=== PATIENT | male | born 1950 | race Caucasian/White ===

== ENCOUNTER 2016-05-03 11:17 | Inpatient (IN) | payer MEDICARE ==
[~2016-05-03] VITALS: Ht 172.7 cm; Wt 77.6 kg
[~2016-05-03 11:17] MED LIST: ADULT LOW DOSE81 MG PO; ANTIBIOTIC PO; AZILECT1 MG PO; BETIMOL 5 ML5 M1 OP; CARBIDOPA/LE1 TABLE2 PO; CEFTRIAXONE 1 GM1 GM IV; CLOPIDOGREL75 M2 PO; CRESTOR5 MG PO; ISOSORBIDE MONO30 MG PO; KEFLEX 500MG.500 MG PO; LEVAQUIN500 MG PO; LEVOFLOXACIN 5500 MG PO; MEDROL 4MG. DOSE4 MG PO; METFORMIN1000 MG PO; METOPROLOL TAR100 MG PO; MIRALAX17 GM/PACK PO; NIASPAN500 MG PO; NITROLINGU0.4 MG/ACT SL; OMEPRAZOLE PO; OXYBUTYNIN CHLOR5 MG PO; OXYCODONE AND A1 TA5 PO; OXYCODONE HCL10 M1 PO; PERCOCET 10 MG1 EACH PO; PERCOCET 5/3251 EACH PO; PRAVASTATIN SOD80 MG PO; PRIMIDONE 50 MG50 MG PO; TAMSULOSIN HCL0.4 MG PO; TAMSULOSIN HYD0.4 MG PO; VITAMIN B121000 MC2 PO; [UNRECOGNIZED DRUG - OTHER] PO; [UNRECOGNIZED DRUG - REMARK] PO
[2016-05-03 11:18] VITALS: BP 141/73
[2016-05-03 11:36] LABS: LYMPH # 1.1 K/mm3 (0.7-4.5); LYMPH % 13.9 % (10-50)
[2016-05-03 11:43] LABS: HEMOGLOBIN 13.5 g/dL (14.1-18.0)
[2016-05-03 12:06] LABS: URINE BLOOD 2+ (NEG)
[2016-05-03 12:07] LABS: URINE BILIRUBIN - DIPSTICK NEGATIVE (NEG)
[2016-05-03 12:23] LABS: BUN 16 mg/dL (7-18)
[2016-05-03 12:25] LABS: GFR (ESTIMATED) 84 ML/MIN (>60)
--- NOTE | 2016-05-03 12:59 | Emergency Room Report ---
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 N Clinical Suspician of Infection? N Mental Status: 1 - Regular (Normal Baseline) Sepsis Risk:Low Sepsis Risk Have you (or family members/close friends) recently traveled outside the [place]? N If Yes, where/when: Have you had exposure to infectious disease within the past month? N TB? Other? Specify: Source patient, RN notes reviewed, family, RN/MD Exam Limitations no limitations Comment 65yo white male presents today with a decline in his mental status and weakness x1 week according to family. He was seen a week ago due to fall and head injury, but was stable and discharged. Pt has chronic medical conditions with cardiac, diabetes, and ambulation, along with chronic f/c use. Family also reports pt having "parkinson's," and started having more tremors after fall. Pt denies fever, chills, n/v/d, CP, palpitations, SOA, wheezing. He does report more fatigue and weakness. ALLERGIES Coded Allergies: No Known Allergies (04/15/16) Home Medications Active Scripts Polyethylene Glycol 3350 (Miralax) 17 GM PO DAILY #1 BOTTLE Ref 1 Prov: 10/18/15 Reported Medications OXYCODONE HCL/ACETAMINOPHEN (Oxycodone-Acetaminophen 10-325) 1 TAB PO Q4HP PRN PAIN #150 Timolol (Betimol 5 Ml) 1 DROP OP BID RASAGILINE MESYLATE (Azilect) 1 MG PO DAILY #30 Aspirin (Adult Low Dose Aspirin EC) 81 MG PO DAILY Rosuvastatin Calcium (Crestor) 5 MG PO QHS RANITIDINE HCL (Ranitidine HCl) 150 MG PO BID #60 TAB Primidone 50 MG PO QHS Nitroglycerin (Nitrolingual [place]) 0.4 MG SL PRN Metoprolol Tartrate (Metoprolol 100MG) 100 MG PO BID CARBIDOPA 25/LEVODOPA 100 (Carbidopa-Levodopa 25-100 Tab) 2 TABLET PO TID Isosorbide Mononitrate (Isosorbide Mononitrate ER) 30 MG PO DAILY #90 CLOPIDOGREL BISULFATE (Clopidogrel) 75 MG PO DAILY #90 TAMSULOSIN HCL (Tamsulosin HCl) 0.4 MG PO BID #180 History Medical History General CAD? No Angina: Yes [place]: Yes Hypertension? Yes Hyperlipidemia? Yes CHF? No DVT? No PE? No COPD? Yes Asthma? Yes Anemia? No GERD? No Gastric ulcers? No GI Bleed? No Hernia? No Thyroid Problems? No Hypothyroidism? No CVA? No Seizures? No Diabetes? Yes Insulin Dependent: No Insulin Pump: No Home FSBS? Yes Renal Insuffiency? Yes End Stage Renal Disease? No UTI? No Stones? No BPH? Yes GB Disease: No Nephritic Syndrome? No Asplenia? No Hepatitis? No Sickle Cell Disease? No Arthritis? Yes Migraines? No Cataracts? No Glaucoma? Yes MRSA? No HIV? No TB? No Anxiety? No Depression? No Cancer? No More? No Immunization Hx DT/Tetanus Unknown Flu 2012-FSN Pneumonia Received In Past Surgical Hx Previous Surgery?Y RT SHOULDER TEETH BACK SURGERY (RECENT) Family History Family Hx Diabetes Yes CAD Yes Hypertension Yes Hyperlipidemia Yes Cancer Yes TB No Social History Smoking Hx Smoker: Current Every Day Smoker Tobacco: Yes Type Cigarettes Packs/day 1 1/2 - 2 Packs Alcohol Alcohol: No Review of Systems All Other Systems Reviewed and Negative Constitutional see HPI Eyes see HPI Respiratory see HPI, denies shortness of breath, denies wheezing Cardiovascular see HPI Gastrointestinal no symptoms reported, see HPI Genitourinary see HPI. Musculoskeletal see HPI, muscle pain Skin denies no symptoms reported Psychiatric/Neurological weakness Physical Exam Vital Signs Vital Signs Date Time Temp Pulse Resp B/P Pulse O2 O2 Flow FiO2 Ox Delivery Rate 05/03 1415 98.7 104 18 150/76 95 2 05/03 1405 18 05/03 1401 98.7 104 18 150/76 95 2 05/03 1315 98.1 98 18 145/67 96 / 1226 98.4 89 18 148/73 98 / 1133 98 05/03 1118 97.7 95 18 141/73 94 2 General Appearance fatigued, lethargic Eye Exam - bilateral eye normal exam, bilateral eye PERRL Neck normal inspection, supple, full range of motion Respiratory Status Yes: trachea midline, chest symmetrical. No: respiratory distress, pain on inspiration, pain on expiration, productive cough, non productive cough. Lung Sounds bilateral: normal breath sounds, lungs clear. Cardiovascular normal exam, regular rate/rhythm Peripheral Pulses Pulses normal Yes Gastrointestinal normal bowel sounds, normal exam Extremities non-tender (equal movement all extremities) Male Genitalia Manley catheter in place. tubing showing sediment around tubing, urine color is orange color. Neurologic alert, normal exam Skin intact, generalized skin dryness and scaling. Medical Decision Making LABS/Meds/Orders Pt receiving controlled substance in ED? No Comment 12:45pm-case discussed with Dr. Carrillo advised of patient's presentation, workup obtained, physical examination. Dr. Carrillo recommended admission. Care transferred to Dr. Carrillo at this time. Temporary bridge orders written, per hospital protocol. Unit nurse to call Dr. Carrillo upon patient's arriving to the floor in order to obtain full admit orders. Results/Orders Laboratory Tests 05/03/16 1155: PT 11.0, INR 1.03, APTT 28.0 05/03/16 1154: Urine Color DK YELLOW, Urine Appearance TURBID, Urine pH 7.5, Ur Specific [place] 1.020, Urine Protein 2+ H, Urine Ketones 1+ H, Urine Blood 2+ H, Urine Nitrate NEGATIVE, Urine Bilirubin NEGATIVE, Urine Urobilinogen 1.0, Ur Leukocyte Esterase 2+ H, Urine RBC TNTC, Urine WBC TNTC, Urine Bacteria 4+, Fine Granular Casts 3-5, Urine Mucus 1+, Urine Glucose NEGATIVE 05/03/16 1125: Amylase 24 L, Lipase 110 05/03/16 1125: Sodium 140, Potassium 3.7, Chloride 104, Carbon Dioxide 26, BUN 16, Creatinine 0.9, Estimated Creat Clear 82, Estimated GFR (MDRD) 84, Glucose 107 H, Calcium 8.7, Total Bilirubin 0.4, AST 17, ALT 12, Alkaline Phosphatase 81, Creatine Kinase 72, CK and CKMB Interp 0.5, Troponin I < 0.02, Total Protein 7.3, Albumin 3.0 L, Globulin 4.3 H, Albumin/Globulin Ratio 0.7 L, WBC 7.7, RBC 4.63, Hgb 13.5 L, Hct 41.0 L, MCV 88.5, RDW 15.6, Plt Count 154, MPV 8.9, Gran % 80.8 H , Gran # 6.2, Lymphocytes % 13.9, Monocytes % 4.7, Eosinophils % 0.2, Basophils % 0.4, Lymphocytes # 1.1, Monocytes # 0.4, Eosinophils # 0.0, Basophils # 0.0, PUBS MCHC 32.9, MCH 29.1 Current Medication Orders Sig/[place] Start time Last Medication Dose Route Stop Time Status Admin Vancomycin HCl 1,250 MG Q12H 05/03 1500 AC 05/04 Sodium Chloride 250 ML IV 0307 Sodium Chloride 10 ML PRN PRN 05/03 1415 AC IV Miscellaneous 1 EACH CONSULT PHARMACY 05/03 1400 DC Information * 05/04 0148 Sodium Chloride 1,000 ML .Q8H 05/03 1400 AC 05/03 IV 2349 Miscellaneous 1 EACH CONSULT PHARMACY 05/03 1330 DC Information * 05/04 0116 Sodium Chloride 10 ML PRN PRN 05/03 1300 DC IV 05/04 1259 Sodium Chloride 10 ML PRN PRN 05/03 1130 AC 05/03 IV 1319 Orders Procedure Date/time Status DIET-1999 CALORIE ADA 05/03 D Active PHARMACIST CONSULT 05/03 1348 Active Decision to admit 05/03 1329 Active CULTURE, URINE 05/03 1154 Active LIPASE 05/03 1122 Complete AMYLASE 05/03 1122 Complete ARTERIAL BLOOD GAS REQUEST 05/03 1121 Active URINALYSIS/COMPLETE 05/03 1121 Complete PARTIAL THROMBOPLASTIN TIME 05/03 1121 Complete PROTHROMBIN TIME 05/03 1121 Complete ELECTROCARDIOGRAM REQUEST 05/03 1120 Active IV SALINE LOCK 05/03 1120 Active OXYGEN PER NURSE 05/03 1120 Active CUSTOMER ACCOUNT COORDINATOR 05/03 1120 Active TROPONIN I 05/03 1120 Complete CPK 05/03 1120 Complete COMPLETE METABOLIC PANEL 05/03 1120 Complete CKMB 05/03 1120 Complete CBC WITH AUTO DIFF 05/03 1120 Complete 12 LEAD EKG-EVELIO (INITIAL) 05/03 UNK Active PULSE OXIMETRY REQUEST 05/03 UNK Active VITAL SIGNS 05/03 UNK Active MAJOR LEAGUE BASEBALL UMPIRE 05/03 UNK Active POM NURSE JOSH ZAVALA ORDER 05/03 UNK Active CODE STATUS 05/03 UNK Active PATIENT ACTIVITY ORDER 05/03 UNK Active Neuro Status, Assess 05/03 UNK Active CM/EKG 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 of ischemic chgs, no ectopy, normal QRS, normal CO, no EKG for comparison, non-spec. ST/Twave chgs, ST elevation, ST depression, LBBB, RBBB, ectopy, abnormal Q waves XRAY/CT/US XRAY/CT/US XRAY chest XR interpretation by reviewed by me Xray Results no infiltrates, normal heart size, normal lung inflation sherman Departure Departure Time of Disposition 1305 Disposition Still a Patient Clinical Impression Primary Impression: Mental status change Qualifiers: Altered mental status type: unspecified Qualified Code: R41.82 - Altered mental status, unspecified Secondary Impressions: Urinary tract infection Qualifiers: Urinary tract infection type: catheter-associated UTI Indwelling urinary catheter type: unspecified Encounter type: initial encounter Qualified Code: T83.511A - Infection and inflammatory reaction due to indwelling urethral catheter, initial encounter Condition STABLE Referrals Rozina ARZOLA,Daniel (Family) ED Critical Care Critical Care No at 1443
[2016-05-03 15:08] VITALS: BP 150/76
--- NOTE | 2016-05-03 15:43 | CONSULT NOTE ---
Pharmacokinetic Consult Date of consult: 05/03/16 Time of consult: 1540 Referring provider: DR. MCALLISTER Reason for consult: VANCOMYCIN DOSING Allergies: Coded Allergies: No Known Allergies (04/15/16) Home Medications: Active Scripts Polyethylene Glycol 3350 (Miralax) 17 GM PO DAILY #1 BOTTLE Ref 1 Prov: 10/18/15 Reported Medications OXYCODONE HCL/ACETAMINOPHEN (Oxycodone-Acetaminophen 10-325) 1 TAB PO Q4HP PRN PAIN #150 RASAGILINE MESYLATE (Azilect) 1 MG PO DAILY #30 Aspirin (Adult Low Dose Aspirin EC) 81 MG PO DAILY Rosuvastatin Calcium (Crestor) 5 MG PO QHS Nitroglycerin (Nitrolingual [place]) 0.4 MG SL PRN Primidone (Primidone) 50 MG PO TID Metoprolol Tartrate (Metoprolol 100MG) 100 MG PO BID Timolol (Betimol 5 Ml) 5 ML OP BID CARBIDOPA 25/LEVODOPA 100 (Carbidopa-Levodopa 25-100 Tab) 2 TABLET PO TID Isosorbide Mononitrate (Isosorbide Mononitrate ER) 30 MG PO DAILY #90 CLOPIDOGREL BISULFATE (Clopidogrel) 75 MG PO DAILY #90 TAMSULOSIN HCL (Tamsulosin HCl) 0.4 MG PO BID #180 Height (feet): 5 Height (inches): 8.00 Medical History: CAD? No Angina: Yes [place]: Yes Hypertension? Yes Hyperlipidemia? Yes CHF? No DVT? No PE? No COPD? Yes Asthma? Yes Anemia? No GERD? No Gastric ulcers? No GI Bleed? No Hernia? No Thyroid Problems? No Hypothyroidism? No CVA? No Seizures? No Diabetes? Yes Insulin Dependent: No Insulin Pump: No Home FSBS? Yes Renal Insuffiency? Yes UTI? No Stones? No BPH? Yes GB Disease: No Nephritic Syndrome? No Asplenia? No Hepatitis? No Sickle Cell Disease? No Arthritis? Yes Migraines? No Cataracts? No Glaucoma? Yes MRSA? No HIV? No TB? No Anxiety? No Depression? No Cancer? No More? No Labs: Laboratory Tests 05/03/16 1155: PT 11.0, INR 1.03, APTT 28.0 05/03/16 1154: Urine Color DK YELLOW, Urine Appearance TURBID, Urine pH 7.5, Ur Specific [place] 1.020, Urine Protein 2+ H, Urine Ketones 1+ H, Urine Blood 2+ H, Urine Nitrate NEGATIVE, Urine Bilirubin NEGATIVE, Urine Urobilinogen 1.0, Ur Leukocyte Esterase 2+ H, Urine RBC TNTC, Urine WBC TNTC, Urine Bacteria 4+, Fine Granular Casts 3-5, Urine Mucus 1+, Urine Glucose NEGATIVE 05/03/16 1125: Amylase 24 L, Lipase 110 05/03/16 1125: Sodium 140, Potassium 3.7, Chloride 104, Carbon Dioxide 26, BUN 16, Creatinine 0.9, Estimated Creat Clear 82, Estimated GFR (MDRD) 84, Glucose 107 H, Calcium 8.7, Total Bilirubin 0.4, AST 17, ALT 12, Alkaline Phosphatase 81, Creatine Kinase 72, CK and CKMB Interp 0.5, Troponin I < 0.02, Total Protein 7.3, Albumin 3.0 L, Globulin 4.3 H, Albumin/Globulin Ratio 0.7 L, WBC 7.7, RBC 4.63, Hgb 13.5 L, Hct 41.0 L, MCV 88.5, RDW 15.6, Plt Count 154, MPV 8.9, Gran % 80.8 H , Gran # 6.2, Lymphocytes % 13.9, Monocytes % 4.7, Eosinophils % 0.2, Basophils % 0.4, Lymphocytes # 1.1, Monocytes # 0.4, Eosinophils # 0.0, Basophils # 0.0, PUBS MCHC 32.9, MCH 29.1 Microbiology 05/03 1154 URINE CC: Urine Culture - RECD Problem List: 1. UTI (urinary tract infection) Plan: BASED ON PATIENT FACTORS, RECOMMEND VANCOMYCIN 1250 MG IV Q12H. WILL OBTAIN VANCOMYCIN TROUGH LEVEL AND ADJUST APPROPRIATE. at 154
[2016-05-03 16:34] VITALS: BP 162/83
--- NOTE | 2016-05-03 17:03 | HISTORY AND PHYSICAL REPORT ---
Demographics: Admit date: 05/03/16 Chief complaint: Weakness PRIMARY DIAGNOSIS: URINARY TRACT INFECTION Allergies: Coded Allergies: No Known Allergies (04/15/16) History of present illness: History of present illness: 65-year-old male with chronic indwelling Manley catheter and Parkinson's disease presented to the emergency department for the second time in less than a week with symptoms of increasing weakness. Patient also tells me he was having fevers at home although he does not specify the degree. He also had a fall at home and struck the LEFT side of his head. In the emergency department he was found to have urinary tract infection. He's been admitted for treatment. When speaking with the ER physician and review of ER visits the patient was in the ER a little over 2 weeks ago and at that time a urine culture ultimately grew MRSA. The patient was treated as an outpatient since that time for respiratory infection with Levaquin. The organism is resistant to Levaquin. Past medical history: Family HX Family Hx Insignificant No Diabetes Yes CAD Yes Hypertension Yes Hyperlipidemia Yes Cancer Yes TB No Immunization HX DT/Tetanus 1-4 Years Ago Flu 2015-FSN Pneumonia Received In Past TB Test in last year No General CAD? No Angina: Yes [place]: Yes Hypertension? Yes Hyperlipidemia? Yes CHF? No DVT? No PE? No COPD? Yes Asthma? Yes Anemia? No GERD? No Gastric ulcers? No GI Bleed? No Hernia? No Thyroid Problems? No Hypothyroidism? No CVA? No Seizures? No Diabetes? Yes Insulin Dependent: No Insulin Pump: No Home FSBS? Yes Renal Insuffiency? Yes UTI? No Stones? No BPH? Yes GB Disease: No Nephritic Syndrome? No Asplenia? No Hepatitis? No Sickle Cell Disease? No Arthritis? Yes Migraines? No Cataracts? No Glaucoma? Yes MRSA? No HIV? No TB? No Anxiety? No Depression? No Cancer? No More? No Past Surgical HX Previous Surgery?Y RT SHOULDER TEETH BACK SURGERY (RECENT) Current home meds: Active Scripts Polyethylene Glycol 3350 (Miralax) 17 GM PO DAILY #1 BOTTLE Ref 1 Prov: 10/18/15 Reported Medications OXYCODONE HCL/ACETAMINOPHEN (Oxycodone-Acetaminophen 10-325) 1 TAB PO Q4HP PRN PAIN #150 RASAGILINE MESYLATE (Azilect) 1 MG PO DAILY #30 Aspirin (Adult Low Dose Aspirin EC) 81 MG PO DAILY Rosuvastatin Calcium (Crestor) 5 MG PO QHS Nitroglycerin (Nitrolingual [place]) 0.4 MG SL PRN Primidone (Primidone) 50 MG PO TID Metoprolol Tartrate (Metoprolol 100MG) 100 MG PO BID Timolol (Betimol 5 Ml) 5 ML OP BID CARBIDOPA 25/LEVODOPA 100 (Carbidopa-Levodopa 25-100 Tab) 2 TABLET PO TID Isosorbide Mononitrate (Isosorbide Mononitrate ER) 30 MG PO DAILY #90 CLOPIDOGREL BISULFATE (Clopidogrel) 75 MG PO DAILY #90 TAMSULOSIN HCL (Tamsulosin HCl) 0.4 MG PO BID #180 Social Hx: Smoking HX Tobacco Yes Type Cigarettes Packs/day < 1 PACK Are you/the child exposed to second-hand smoke: No Alcohol Alcohol: No Hx of Drug Use Drug Use? No Review of systems: Constitutional chills, weakness. Respiratory No: cough, shortness of breath. Cardiovascular No chest pain, No palpitations Gastrointestinal/Abdominal poor appetite Genitourinary see HPI. Musculoskeletal other (myalgias). Neurological Yes: see HPI. Exam: Lab data for last 24 hours: Laboratory Tests 05/03/16 1155: PT 11.0, INR 1.03, APTT 28.0 05/03/16 1154: Urine Color DK YELLOW, Urine Appearance TURBID, Urine pH 7.5, Ur Specific [place] 1.020, Urine Protein 2+ H, Urine Ketones 1+ H, Urine Blood 2+ H, Urine Nitrate NEGATIVE, Urine Bilirubin NEGATIVE, Urine Urobilinogen 1.0, Ur Leukocyte Esterase 2+ H, Urine RBC TNTC, Urine WBC TNTC, Urine Bacteria 4+, Fine Granular Casts 3-5, Urine Mucus 1+, Urine Glucose NEGATIVE 05/03/16 1125: Amylase 24 L, Lipase 110 05/03/16 1125: Sodium 140, Potassium 3.7, Chloride 104, Carbon Dioxide 26, BUN 16, Creatinine 0.9, Estimated Creat Clear 82, Estimated GFR (MDRD) 84, Glucose 107 H, Calcium 8.7, Total Bilirubin 0.4, AST 17, ALT 12, Alkaline Phosphatase 81, Creatine Kinase 72, CK and CKMB Interp 0.5, Troponin I < 0.02, Total Protein 7.3, Albumin 3.0 L, Globulin 4.3 H, Albumin/Globulin Ratio 0.7 L, WBC 7.7, RBC 4.63, Hgb 13.5 L, Hct 41.0 L, MCV 88.5, RDW 15.6, Plt Count 154, MPV 8.9, Gran % 80.8 H , Gran # 6.2, Lymphocytes % 13.9, Monocytes % 4.7, Eosinophils % 0.2, Basophils % 0.4, Lymphocytes # 1.1, Monocytes # 0.4, Eosinophils # 0.0, Basophils # 0.0, PUBS MCHC 32.9, MCH 29.1 Microbiology 05/03 1154 URINE CC: Urine Culture - RECD Admission vital signs: 1ST Vital Signs Result Date Time Pulse Ox 94 05/03 1118 B/P 141/73 05/03 1118 O2 Flow Rate 2 05/03 1118 Temp 97.7 05/03 1118 Pulse 95 05/03 1118 Resp 18 05/03 1118 O2 Delivery OXYGEN 05/03 1508 Additional information: Patient appears weak and mildly ill. Head exam reveals a bruise above the LEFT eyebrow. Pupils are reactive to light. Oropharynx reveals tacky mucous membranes. Neck has no lymphadenopathy. Lungs are clear. Heart has a regular rate and rhythm. Abdomen is soft and nontender. Neurologically the patient can move all extremities. Plan: Problem List 1. Fall 2. UTI (urinary tract infection) 3. MRSA (methicillin resistant staph aureus) culture positive Plan: Patient has been admitted and placed on vancomycin to treat the previously documented MRSA urinary tract infection. As it is been over 2 weeks since that culture was positive I am going to add on some Rocephin for gram-negative coverage until current urine culture is back. Continue IV fluids. Await blood cultures and repeat urine culture. Home medicines will be reinitiated. at 1703
[2016-05-03 20:00] VITALS: BP 162/83
--- NOTE | 2016-05-03 20:03 | RADIOLOGY REPORT PS360 ---
CHEST-PORTABLE ORDERING PHYSICIAN : Matt France MD PATIENT AGE: 65 years GENDER: Male INDICATION: chest symptomsdyspnea PROCEDURE: CHEST-PORTABLE COMPARISON: Previous chest film portable 10/14/2015 11/16/2015 10/16/2015 FINDINGS: Limited portable upright chest. Rotated. With Grid shift.. No focal pneumonia. Most likely stable baseline appearance. Only question mild central airway peribronchial inflammatory changes as seen on 10/14/2015. No pleural effusion. No CHF underlying COPD Heart and mediastinal structures otherwise unremarkable. IMPRESSION .\ no focal pneumonia. No CHF Only Question mild central airway inflammatory changes
--- NOTE | 2016-05-03 21:35 | PHARMACY CLINIC NOTE ---
Patient Demographics Patient Demographics Admission date: 05/03/16 Date: 05/03/16 Time: 2133 Allergies Coded Allergies: No Known Allergies (04/15/16) HEIGHT- FT: 5 IN: 8.00 K.622 VTE General Information Labs: Laboratory Tests 05/03 05/03 1155 1125 Coagulation PT (9.4 - 11.8 SECONDS) 11.0 INR (0.9 - 1.1) 1.03 APTT (23.6 - 34.0 SECONDS) 28.0 Hematology Hgb (14.1 - 18.0 g/dL) 13.5 L Hct (42.0 - 52.0 %) 41.0 L Plt Count (142 - 424 K/mm3) 154 Disclaimer The following section includes nursing documentation that has been pulled in for pharmacy review. Patient's VTE score: 3 Patient's VTE Risk: LOW RISK Clinical trial participant? No VTE prophylaxis NQF [id number] VTE prophylaxis ordered? Yes Type of prophylaxis/treatment: JOSH at 6731
[2016-05-03] MEDS ORDERED: RANITIDINE 150150 MG PO (21:37)
[2016-05-03 23:46] VITALS: BP 129/62
[2016-05-04] VITALS (9 sets, daily range): BP systolic 111–187; BP diastolic 59–89
[2016-05-04 06:27] LABS: LYMPH # 1.2 K/mm3 (0.7-4.5); LYMPH % 21.6 % (10-50)
[2016-05-04 06:41] LABS: HEMOGLOBIN 11.9 g/dL (14.1-18.0)
--- NOTE | 2016-05-04 07:27 | ACUTE CARE PROGRESS NOTE (QUA) ---
Progress Notes Subjective Date 05/04/16 Time 0725 Patient/family reports: feeling better (but having chills, fevers) Nursing reports: alert (and oriented) Objective Findings Last VS-Temp:98.5 B/P:118/61 Pulse:83 Resp:24 SaO2:91 OXYGEN Last weight lbs:171 oz:2 K.622 Method:Bed Scales Exam General appearance: alert (scalp lac on right forehead ), cachetic Eyes: anicteric Cardiovascular: normal exam, no JVD Respiratory: aerating well (with scattered rhonchi) ABD: soft, no tenderness Extremities: normal exam (moves poorly with lots of pain) Assessment/Plan Problem List 1. Fall 2. UTI (urinary tract infection) Qualifiers: Urinary tract infection type: catheter-associated UTI Indwelling urinary catheter type: unspecified Encounter type: initial encounter Qualified Code: T83.511A - Infection and inflammatory reaction due to indwelling urethral catheter, initial encounter 3. MRSA (methicillin resistant staph aureus) culture positive Patient condition Improving Plan: continue current care, order additional tests (check cultures) This inpt stay is expected to cross 2 MNs from start of care Yes at 0737
[2016-05-04] MEDS ORDERED: PRIMIDONE50 MG PO (07:59)
[2016-05-04 12:46] LABS: URINE BLOOD 3+ (NEG)
[2016-05-04 12:53] LABS: URINE BILIRUBIN - DIPSTICK NEGATIVE (NEG)
[2016-05-05] VITALS (7 sets, daily range): BP systolic 115–162; BP diastolic 70–78
--- NOTE | 2016-05-05 08:31 | ACUTE CARE PROGRESS NOTE (QUA) ---
Progress Notes Subjective Date 05/05/16 Time 0830 Patient/family reports: feeling better, no complaints Nursing reports: alert, no complaints Objective Findings Last VS-Temp:98.8 B/P:147/76 Pulse:65 Resp:20 SaO2:97 OXYGEN Last weight lbs:171 oz:2 K.622 Method:Bed Scales Exam General appearance: alert Eyes: anicteric Neck: non-tender Cardiovascular: normal exam, no JVD Respiratory: aerating well ABD: soft Genitourinary: catheter in place Musculoskeletal: muscle stiffness, neck pain Neuro: alert Assessment/Plan Problem List 1. Fall 2. UTI (urinary tract infection) Qualifiers: Urinary tract infection type: catheter-associated UTI Indwelling urinary catheter type: unspecified Encounter type: initial encounter Qualified Code: T83.511A - Infection and inflammatory reaction due to indwelling urethral catheter, initial encounter 3. MRSA (methicillin resistant staph aureus) culture positive Patient condition Improving Plan: continue current care, remove secured entrance monitor, change antibiotic therapy as noted below. Probably home tomorrow on p.o. antibiotics. This inpt stay is expected to cross 2 MNs from start of care Yes Antibiotic Stewardship (2) Current Culture Results Microbiology 05/04 UNK URINE,FO: Urine Culture - RES 05/03 1154 URINE CC: Urine Culture - COMP ESCHERICHIA COLI Infxn that will respond? Yes Right drug,dose,and route? Yes More targeted antbx? Yes (DC vancomycin) How long atbx needed? 7 at 0831
[2016-05-06 00:05] VITALS: BP 128/78
[2016-05-06 04:00] VITALS: BP 122/76
--- NOTE | 2016-05-06 05:58 | ACUTE CARE PROGRESS NOTE (QUA) ---
Progress Notes Admission Date: 05/03/16 Subjective Date 05/06/16 Time 0557 Note Overall patient feels much better, actually very much wished to go home last night but I wanted him to have one more dose of IV antibiotics for his UTI with failed outpatient therapy. This morning is much more alert, continues to have some pain in his back but this is at baseline. Cardiopulmonary exam unremarkable. Urine catheter draining clear yellow urine. Objective Findings Last VS-Temp:98.5 B/P:128/78 Pulse:64 Resp:16 SaO2:96 OXYGEN Last weight lbs:171 oz:2 K.622 Method:Bed Scales Assessment/Plan Problem List 1. Fall 2. UTI (urinary tract infection) Qualifiers: Urinary tract infection type: catheter-associated UTI Indwelling urinary catheter type: unspecified Encounter type: initial encounter Qualified Code: T83.511A - Infection and inflammatory reaction due to indwelling urethral catheter, initial encounter 3. MRSA (methicillin resistant staph aureus) culture positive Patient condition Improving Plan: initiate discharge plan This inpt stay is expected to cross 2 MNs from start of care Yes Antibiotic Stewardship (2) Infxn that will respond? Yes Right drug,dose,and route? Yes More targeted antbx? Yes (SERG vancomycin) at 0534
--- NOTE | 2016-05-06 05:59 | DISCHARGE SUMMARY STANDARD ---
Demographics Admit date: 05/03/16 Discharge date: 05/06/16 History of present illness History of present illness 65-year-old male with chronic indwelling Manley catheter and Parkinson's disease presented to the emergency department for the second time in less than a week with symptoms of increasing weakness. Patient also tells me he was having fevers at home although he does not specify the degree. He also had a fall at home and struck the LEFT side of his head. In the emergency department he was found to have urinary tract infection. He's been admitted for treatment. When speaking with the ER physician and review of ER visits the patient was in the ER a little over 2 weeks ago and at that time a urine culture ultimately grew MRSA. The patient was treated as an outpatient since that time for respiratory infection with Levaquin. The organism is resistant to Levaquin. Hospital Course Hospital Course: Patient was admitted, placed on ceftriaxone, and tolerated this well. Sensitivity panels revealed E. coli sensitive to ceftriaxone and this medicine was continued for the next inpatient days. The patient improved nicely. Given the patient's multiple comorbidities, end-stage emphysema, disabling/ debilitating chronic back pain and indwelling Manley catheter assisted admission was recommended to the family but they adamantly refused and wished to take him home along with home health services. This morning his reached maximal medical improvement vis--vis infection treatment will be discharged on Omnicef. He is due for his monthly Percocet prescription for his severe/chronic/disabling back pain secondary to failed back surgery with displaced hardware and significantly painful spondylolisthesis. This we refilled before discharge. Discharge diagnoses Problem List 1. Fall 2. UTI (urinary tract infection) 3. MRSA (methicillin resistant staph aureus) culture positive Medications Medications: Discharge meds are as noted. Follow up Follow up in office in: 7 DAYS with: Daniel Handy MD at [phone]
[2016-05-06] MEDS ORDERED: OMNICEF 300 MG300 MG PO (06:01)
[2016-05-06] MEDS ORDERED: OXYCODONE AND A1 TA5 PO (06:01)
[2016-05-06] MEDS ORDERED: BACTROBAN2% TP (06:25)
[2016-05-06 06:38] LABS: HEMOGLOBIN 11.3 g/dL (14.1-18.0); LYMPH # 1.2 K/mm3 (0.7-4.5); LYMPH % 29.3 % (10-50)
[2016-05-06 08:44] VITALS: BP 122/76
== END 2016-05-06 08:35 | disposition home health service (06) | DRG 700 ==
LOC: ER 11:17 → 2ND 13:35 → ER 13:35 → 2ND 13:35
PROVIDERS: Emergency Medicine; Family Medicine; Internal Medicine Adolescent Medicine
DX: T83.511A Infection and inflammatory reaction due to indwelling urethral catheter, initial encounter (principal); G20 Parkinson's disease; J44.9 Chronic obstructive pulmonary disease, unspecified; I10 Essential (primary) hypertension; B95.62 Methicillin resistant Staphylococcus aureus infection as the cause of diseases classified elsewhere; M43.10 Spondylolisthesis, site unspecified; Z91.81 History of falling
CPT/HCPCS: J3370

== ENCOUNTER 2017-01-03 00:09 | Inpatient (IN) | payer MEDICARE, MEDICAID ==
[~2017-01-03] VITALS: Ht 172.7 cm; Wt 77.7 kg
[2017-01-03] VITALS (7 sets, daily range): BP systolic 103–138; BP diastolic 7–93
[~2017-01-03 00:09] MED LIST changes: +AUGMENTIN 875-1 EACH PO; +BACTROBAN2% TP; +FUROSEMIDE 20MG20 MG FT; +GABAPENTIN 100100 MG PO; +MUPIROCIN2% TP; +NUEDEXTA1 CAP PO; +OMNICEF 300 MG300 MG PO; +PRIMIDONE50 MG PO; +RANITIDINE 150150 MG PO
--- NOTE | 2017-01-03 00:51 | Emergency Room Report ---
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 Y Clinical Suspician of Infection? Y Mental Status: 2 - Mildly Altered Sepsis Risk:Possible Sepsis Risk Have you (or family members/close friends) recently traveled outside the [place]? N If Yes, where/when: Have you had exposure to infectious disease within the past month? N TB? Other? Specify: Source patient, RN notes reviewed, family, EMS, [facility] records, old records Exam Limitations clinical condition Comment pt wih congestion and cough with dec level of activity at [facility] andwas sent for eval Cardiac Chest Pain Chest pain indicative of cardiac No Timing/Duration this evening Severity moderate ALLERGIES Coded Allergies: No Known Allergies (04/15/16) Home Medications Active Scripts Polyethylene Glycol 3350 (Miralax) 17 GM PO DAILY #1 BOTTLE Ref 1 Prov: 10/18/15 OXYCODONE HCL/ACETAMINOPHEN (Oxycodone-Acetaminophen 10-325) 1 TAB PO Q4HP PRN PAIN #150 TAB Prov: 05/06/16 Reported Medications Timolol (Betimol 5 Ml) 1 DROP OP BID RASAGILINE MESYLATE (Azilect) 1 MG PO DAILY #30 Aspirin (Adult Low Dose Aspirin EC) 81 MG PO DAILY Rosuvastatin Calcium (Crestor) 5 MG PO QHS RANITIDINE HCL (Ranitidine HCl) 150 MG PO BID #60 TAB Primidone 50 MG PO QHS DEXTROMETHORPHAN HBR/QUINIDINE (Nuedexta 20-10 MG Capsule) 1 CAP PO BID GABAPENTIN (Gabapentin 100MG Capsule) 100 MG PO TID Furosemide (Furosemide) 20 MG FT DAILY Nitroglycerin (Nitrolingual [place]) 0.4 MG SL PRN Metoprolol Tartrate (Metoprolol 100MG) 100 MG PO BID CARBIDOPA 25/LEVODOPA 100 (Carbidopa-Levodopa 25-100 Tab) 2 TABLET PO TID Isosorbide Mononitrate (Isosorbide Mononitrate ER) 30 MG PO DAILY #90 CLOPIDOGREL BISULFATE (Clopidogrel) 75 MG PO DAILY #90 TAMSULOSIN HCL (Tamsulosin HCl) 0.4 MG PO BID #180 Furosemide (Lasix 20MG) 20 MG PO DAILY Cranberry Extract (Cranberry) 250 MG PO BID METFORMIN HCL (Metformin 1000MG) 1,000 MG PO ACHS DEXTROMETHORPHAN HBR/QUINIDINE (Nuedexta 20-10 MG Capsule) 1 CAP PO BID ROPINIROLE HCL (Requip 0.25MG) 0.25 MG PO QHS Lactulose (Lactulose) 10 GM PO DAILYP PRN BM Acetaminophen (Pain Reliever) 500 MG PO Q6HP PRN FEVER History Medical History General CAD? No Angina: Yes [place]: Yes Hypertension? Yes Hyperlipidemia? Yes CHF? No DVT? No PE? No COPD? Yes Asthma? Yes Anemia? No GERD? No Gastric ulcers? No GI Bleed? No Hernia? No Thyroid Problems? No Hypothyroidism? No CVA? No Seizures? No Diabetes? Yes Insulin Dependent: No Insulin Pump: No Home FSBS? Yes Renal Insuffiency? Yes End Stage Renal Disease? No UTI? No Stones? No BPH? Yes GB Disease: No Nephritic Syndrome? No Asplenia? No Hepatitis? No Sickle Cell Disease? No Arthritis? Yes Migraines? No Cataracts? No Glaucoma? Yes MRSA? No HIV? No TB? No Anxiety? No Depression? No Cancer? No More? No Immunization Hx Ped.Immunizations UTD No DT/Tetanus 1-4 Years Ago Flu 2015-17FSN Pneumonia Received In Past Surgical Hx Previous Surgery?Y RT SHOULDER TEETH BACK SURGERY (RECENT) Family History Family Hx Diabetes Yes CAD Yes Hypertension Yes Hyperlipidemia Yes Cancer Yes TB No Social History Smoking Hx Smoker: Never Smoker Tobacco: No Packs/day < 1 Pack Alcohol Alcohol: No Drugs none Review of Systems All Other Systems Reviewed and Negative Constitutional see HPI, denies fever, other Eyes denies drainage ENT denies: ear discharge, epistaxis, throat pain. Respiratory see HPI, cough, shortness of breath, denies wheezing Cardiovascular denies chest pain, denies palpitations, denies syncope Gastrointestinal denies abdominal pain, denies diarrhea, denies vomiting Genitourinary denies: dysuria, frequency, hesitancy, hematuria. Musculoskeletal denies back pain, denies joint pain, denies joint swelling, denies neck pain Skin denies rash Psychiatric/Neurological denies seizure Physical Exam Vital Signs Vital Signs Date Time Temp Pulse Resp B/P Pulse O2 O2 Flow FiO2 Ox Delivery Rate 01/03 0135 100 22 100/68 100 01/03 0011 101.2 111 22 114/70 87 - WBC >12,000 or <4,000 or 10% bands? 2 or more SIRS Criteria Met? B/P:100/68 MAP:84 Creatinine >2.0? UA output<0.5ml/kg/hr for 2 hrs? Platelet count >100,000? Lactate >2.0mmol/1? INR >1.2 or PTT > than 60 sec? Evidence of Organ Dysfunction? Provider documented clinical suspician of infection? Y Sepsis Criteria Count: 1 Sepsis Risk: Possible Sepsis Risk General Appearance no apparent distress Eye Exam - bilateral eye PERRL, bilateral eye EOMI Ear, Nose, Throat rattling bs Neck limited range of motion Respiratory Status No: respiratory distress, use of accessory muscles. Lung Sounds bilateral: decreased breath sounds, rhonchi. right: rales. Cardiovascular regular rate/rhythm, systolic murmur, gallop/S4 Peripheral Pulses Pulses normal Yes Gastrointestinal soft Extremities swelling Neurologic obtunded with no focal changes or posturing Reflexes Reflexes normal No Mental status altered mental status Skin intact Medical Decision Making LABS/Meds/Orders Pt receiving controlled substance in ED? No Results/Orders Laboratory Tests 01/03/17 003: Lactic Acid 1.2 01/03/1738: Sodium 139, Potassium 3.9, Chloride 101, Carbon Dioxide 30, BUN 26 H, Creatinine 1.1, Estimated Creat Clear 70, Estimated GFR (MDRD) 67, Glucose 176 H, Calcium 8.2 L, Total Bilirubin 0.3, AST 18, ALT 8 L, Alkaline Phosphatase 89, Total Protein 7.4, Albumin 3.3 L, Globulin 4.1 H, Albumin/Globulin Ratio 0.8 L, WBC 14.4 H, RBC 4.47 L, Hgb 12.6 L, Hct 39.4 L, MCV 88.2, RDW 14.1, Plt Count 221, MPV 7.4, Gran % 88.4 H, Gran # 12.8 H, Total Counted Pending, Lymphocytes % 8.0 L, Monocytes % 3.4, Eosinophils % 0.1, Basophils % 0.1, Neutrophils Pending, Lymphocytes (Manual) Pending, Lymphocytes # 1.2, Monocytes # 0.5, Eosinophils # 0.0, Basophils # 0.0, Platelet Estimate Pending, PUBS MCHC 32.1, MCH 28.3 01/03/17 0035: Urine Color DK YELLOW, Urine Appearance TURBID, Urine pH 8.5, Ur Specific [place] 1.015, Urine Protein 2+ H, Urine Ketones TRACE H, Urine Blood 2+ H, Urine Nitrate NEGATIVE, Urine Bilirubin 1+ H, Urine Urobilinogen 1.0, Ur Leukocyte Esterase 3+ H, Urine RBC 10-20, Urine WBC 20-50, Ur Squamous Epith Cells 10-20, Urine Bacteria 4+, Urine Glucose NEGATIVE Current Medication Orders Sig/[place] Start time Last Medication Dose Route Stop Time Status Admin Acetaminophen 650 MG ONCE ONE 01/03 145 DC OR 01/03 014 Levofloxacin/Dextrose 100 ML ONCE ONE 01/035 r IV 01/03 0244 Piperacillin Sod/ 3.375 GM ONCE ONE 01/035 AC Tazobactam Sod IV 01/03 0214 Sodium Chloride 50 ML Sodium Chloride 10 ML PRN PRN 01/03 0045 AC IV 01/04 0032 Orders Procedure Date/time Status TROPONIN I 01/03 013 Active DIFFERENTIAL-WBC 01/03 39 Active CULTURE, URINE 01/03 35 Active CHEST-PORTABLE 01/03 34 Active IV SALINE LOCK 01/03 34 Active CULTURE, BLOOD 01/03 34 Active URINALYSIS/COMPLETE 01/03 34 Complete LACTIC ACID 01/03 34 Complete CBC WITH AUTO DIFF 01/03 34 Active CHEM 12 PROFILE 01/03 34 Complete XRAY/CT/US XRAY/CT/US XRAY chest XR interpretation by reviewed by me Xray Results abnormal (rt hcap) Departure Departure Time of Disposition 0050 Disposition Still a Patient Clinical Impression Primary Impression: HCAP (healthcare-associated pneumonia) Condition STABLE Referrals Daniel Handy MD discussed with dr tiki CROWDER Critical Care Critical Care No at 0147
[2017-01-03 00:58] LABS: HEMOGLOBIN 12.6 g/dL (14.1-18.0); LYMPH # 1.2 K/mm3 (0.7-4.5)
[2017-01-03 01:04] LABS: URINE BLOOD 2+ (NEG)
[2017-01-03] MEDS ORDERED: LASIX 20MG. TAB20 MG PO (01:08)
[2017-01-03] MEDS ORDERED: CRANBERRY250 MG PO (01:09)
[2017-01-03] MEDS ORDERED: METFORMIN HCL1000 MG PO (01:10)
[2017-01-03] MEDS ORDERED: NUEDEXTA1 CAP PO (01:11)
[2017-01-03] MEDS ORDERED: REQUIP0.25 MG PO (01:11)
[2017-01-03] MEDS ORDERED: LACTULOSE10 GM/15 M PO (01:12)
[2017-01-03 01:14] LABS: URINE BILIRUBIN - DIPSTICK 1+ (NEG)
[2017-01-03] MEDS ORDERED: NON-ASPIRIN EX500 MG PO (01:15)
[2017-01-03 02:08] LABS: NEUTROPHILS 69 % (42-76)
--- NOTE | 2017-01-03 08:32 | RADIOLOGY REPORT PS360 ---
CHEST-PORTABLE HISTORY: SOB, ASPIRATION history short of breath. Aspiration. Patient Age: 66 years: Male Ordering Physician: Chantell Lancaster MD TECHNIQUE: AP portable upright chest COMPARISON : 11/01/2016 FINDINGS Interval development right lower lobe opacity most compatible with a focal area of consolidation and pneumonia. On this portable study. This partially obscures right infrahilar region and likely involves the right lower lobe as it does not obscure the right heart border. Suggestion minimal infiltrate and atelectasis at the left base most evident medial left base.. This is a change since May 2016. Upper lung briggs are clear unremarkable . The heart, canelo and mediastinal structures unremarkable. Degenerative changes right shoulder suspect right rotator cuff tear pattern IMPRESSION bibasilar airspace disease. Focal focal area of pneumonic consolidation & atelectasis most evident right infrahilar region/RLL,. Suspect minimal infiltrate also at the medial left lung base
--- NOTE | 2017-01-03 08:36 | HISTORY AND PHYSICAL REPORT ---
Demographics: Admit date: 01/03/17 Chief complaint: Fever and cough PRIMARY DIAGNOSIS: HEALTHCARE AQUIRED PNEUMONIA Allergies: Coded Allergies: No Known Allergies (04/15/16) History of present illness: History of present illness: 66-year-old white male, resident of the [facility] facility, who has been confined to the prison there because of severe chronic obstructive pulmonary disease, crippling back degenerative disease, status post multiple fusion procedures and chronic pain issues as well as dementia with pseudo-bulbar affect issues and parkinsonism who I saw December 30 on regular rounds who had fairly baseline lung exam. The prison called EMS late last night because patient had a high fever, and he was brought to the emergency department where he was found to have infiltrates on chest x-ray and evidence of aspiration pneumonia/prison acquired disease. Admitted to hospital with broad-spectrum antibiotics. This morning his breathing has improved somewhat but he continues to have some pain. Past medical history: Family HX Diabetes Yes CAD Yes Hypertension Yes Hyperlipidemia Yes Cancer Yes TB No Immunization HX Ped.Immunizations UTD No DT/Tetanus 1-4 Years Ago Flu 2015-FSN Pneumonia Received In Past Other UNABLE TO DETERMINE TB RESULT R/T MENTAL STATUS TB Test in last year Yes Result N/A General CAD? No Angina: Yes [place]: Yes Hypertension? Yes Hyperlipidemia? Yes CHF? No DVT? No PE? No COPD? Yes Asthma? Yes Anemia? No GERD? No Gastric ulcers? No GI Bleed? No Hernia? No Thyroid Problems? No Hypothyroidism? No CVA? No Seizures? No Diabetes? Yes Insulin Dependent: No Insulin Pump: No Home FSBS? Yes Renal Insuffiency? Yes UTI? No Stones? No BPH? Yes GB Disease: No Nephritic Syndrome? No Asplenia? No Hepatitis? No Sickle Cell Disease? No Arthritis? Yes Migraines? No Cataracts? No Glaucoma? Yes MRSA? No HIV? No TB? No Anxiety? No Depression? No Cancer? No More? No Past Surgical HX Previous Surgery?Y RT SHOULDER TEETH BACK SURGERY Current home meds: Active Scripts Polyethylene Glycol 3350 (Miralax) 17 GM PO DAILY #1 BOTTLE Ref 1 Prov: 10/18/15 OXYCODONE HCL/ACETAMINOPHEN (Oxycodone-Acetaminophen 10-325) 1 TAB PO Q4HP PRN PAIN #150 TAB Prov: 05/06/16 Reported Medications Timolol (Betimol 5 Ml) 1 DROP OP BID RASAGILINE MESYLATE (Azilect) 1 MG PO DAILY #30 Aspirin (Adult Low Dose Aspirin EC) 81 MG PO DAILY Rosuvastatin Calcium (Crestor) 5 MG PO QHS RANITIDINE HCL (Ranitidine HCl) 150 MG PO BID #60 TAB Primidone 50 MG PO QHS DEXTROMETHORPHAN HBR/QUINIDINE (Nuedexta 20-10 MG Capsule) 1 CAP PO BID GABAPENTIN (Gabapentin 100MG Capsule) 100 MG PO TID Nitroglycerin (Nitrolingual [place]) 0.4 MG SL PRN Metoprolol Tartrate (Metoprolol 100MG) 100 MG PO BID CARBIDOPA 25/LEVODOPA 100 (Carbidopa-Levodopa 25-100 Tab) 2 TABLET PO TID Isosorbide Mononitrate (Isosorbide Mononitrate ER) 30 MG PO DAILY #90 CLOPIDOGREL BISULFATE (Clopidogrel) 75 MG PO DAILY #90 TAMSULOSIN HCL (Tamsulosin HCl) 0.4 MG PO BID #180 Furosemide (Lasix 20MG) 20 MG PO DAILY Cranberry Extract (Cranberry) 250 MG PO BID METFORMIN HCL (Metformin 1000MG) 1,000 MG PO ACHS DEXTROMETHORPHAN HBR/QUINIDINE (Nuedexta 20-10 MG Capsule) 1 CAP PO BID ROPINIROLE HCL (Requip 0.25MG) 0.25 MG PO QHS Lactulose (Lactulose) 10 GM PO DAILYP PRN BM Acetaminophen (Pain Reliever) 500 MG PO Q6HP PRN FEVER Social Hx: Smoking HX Tobacco No Packs/day < 1 PACK Are you/the child exposed to second-hand smoke: Yes Alcohol Alcohol: No Hx of Drug Use Drug Use? No Patien't marital status is Patient's support system is excellent Comment: Long-term resident of prison. Review of systems: Constitutional diaphoresis, fever, malaise. No: chills. Respiratory cough, shortness of breath, SOB with excertion. Cardiovascular No no symptoms reported Gastrointestinal/Abdominal No no symptoms reported Genitourinary No: no symptoms reported. Musculoskeletal back pain, gout, joint pain. Neurological No: see HPI. Exam: Lab data for last 24 hours: Laboratory Tests 01/03/175: Troponin I < 0.02 01/03/1738: Lactic Acid 1.2 01/03/1738: Sodium 139, Potassium 3.9, Chloride 101, Carbon Dioxide 30, BUN 26 H, Creatinine 1.1, Estimated Creat Clear 70, Estimated GFR (MDRD) 67, Glucose 176 H, Calcium 8.2 L, Total Bilirubin 0.3, AST 18, ALT 8 L, Alkaline Phosphatase 89, Total Protein 7.4, Albumin 3.3 L, Globulin 4.1 H, Albumin/Globulin Ratio 0.8 L, WBC 14.4 H, RBC 4.47 L, Hgb 12.6 L, Hct 39.4 L, MCV 88.2, RDW 14.1, Plt Count 221, MPV 7.4, Gran % 88.4 H, Gran # 12.8 H, Total Counted 100, Lymphocytes % 8.0 L, Monocytes % 3.4, Eosinophils % 0.1, Basophils % 0.1, Neutrophils 69, Band Neutrophils 16 H, Lymphocytes (Manual) 13, Lymphocytes # 1.2, Monocytes (Manual) 2, Monocytes # 0.5, Eosinophils # 0.0, Basophils # 0.0, Platelet Estimate NORMAL, Ovalocytes 1+, PUBS MCHC 32.1, MCH 28.3 01/03/1734: Urine Color DK YELLOW, Urine Appearance TURBID, Urine pH 8.5, Ur Specific [place] 1.015, Urine Protein 2+ H, Urine Ketones TRACE H, Urine Blood 2+ H, Urine Nitrate NEGATIVE, Urine Bilirubin 1+ H, Urine Urobilinogen 1.0, Ur Leukocyte Esterase 3+ H, Urine RBC 10-20, Urine WBC 20-50, Ur Squamous Epith Cells 10-20, Urine Bacteria 4+, Urine Glucose NEGATIVE Microbiology 01/03 39 BLOOD: Anaerobic Blood Culture - RECD 01/03 39 BLOOD: Aerobic Blood Culture - RECD 01/03 39 BLOOD: Anaerobic Blood Culture - RECD 01/03 39 BLOOD: Aerobic Blood Culture - RECD 01/03 35 URINE CC: Urine Culture - RECD Admission vital signs: 1ST Vital Signs Result Date Time Pulse Ox 87 01/03 11 B/P 114/70 01/03 11 Temp 101.2 01/03 11 Pulse 111 09/04 0011 Resp 22 09/04 0011 O2 Delivery OXYGEN 01/03 0240 O2 Flow Rate 4 01/03 0248 Additional information: White male, appears older than his stated age. Constantly states "I want to go home." Lungs have rhonchi in both lung briggs. Especially in posterior bases. RIGHT anterior chest also with rhonchi. Heart rate regular. Abdomen soft. Movement of his back and legs causes pain at his baseline. No edema. Very poor tissue perfusion, lots of stigmata of nicotine damage to oral cavity, peripheral tissues, skin and fingernails. Plan: Problem List 1. Aspiration pneumonia 2. HCAP (healthcare-associated pneumonia) 3. Cough Plan: Restart patient's medications for pseudobulbar affect, parkinsonism, etc. Broad-spectrum anabiotics. Await culture results. at 0835
--- NOTE | 2017-01-03 08:36 | HISTORY AND PHYSICAL REPORT ---
Demographics: Admit date: 01/03/17 Chief complaint: Fever and cough PRIMARY DIAGNOSIS: HEALTHCARE AQUIRED PNEUMONIA Allergies: Coded Allergies: No Known Allergies (04/15/16) History of present illness: History of present illness: 66-year-old white male, resident of the [facility] facility, who has been confined to the residential there because of severe chronic obstructive pulmonary disease, crippling back degenerative disease, status post multiple fusion procedures and chronic pain issues as well as dementia with pseudo-bulbar affect issues and parkinsonism who I saw December 30 on regular rounds who had fairly baseline lung exam. The residential called EMS late last night because patient had a high fever, and he was brought to the emergency department where he was found to have infiltrates on chest x-ray and evidence of aspiration pneumonia/residential acquired disease. Admitted to hospital with broad-spectrum antibiotics. This morning his breathing has improved somewhat but he continues to have some pain. Past medical history: Family HX Diabetes Yes CAD Yes Hypertension Yes Hyperlipidemia Yes Cancer Yes TB No Immunization HX Ped.Immunizations UTD No DT/Tetanus 1-4 Years Ago Flu 2015-FSN Pneumonia Received In Past Other UNABLE TO DETERMINE TB RESULT R/T MENTAL STATUS TB Test in last year Yes Result N/A General CAD? No Angina: Yes [place]: Yes Hypertension? Yes Hyperlipidemia? Yes CHF? No DVT? No PE? No COPD? Yes Asthma? Yes Anemia? No GERD? No Gastric ulcers? No GI Bleed? No Hernia? No Thyroid Problems? No Hypothyroidism? No CVA? No Seizures? No Diabetes? Yes Insulin Dependent: No Insulin Pump: No Home FSBS? Yes Renal Insuffiency? Yes UTI? No Stones? No BPH? Yes GB Disease: No Nephritic Syndrome? No Asplenia? No Hepatitis? No Sickle Cell Disease? No Arthritis? Yes Migraines? No Cataracts? No Glaucoma? Yes MRSA? No HIV? No TB? No Anxiety? No Depression? No Cancer? No More? No Past Surgical HX Previous Surgery?Y RT SHOULDER TEETH BACK SURGERY Current home meds: Active Scripts Polyethylene Glycol 3350 (Miralax) 17 GM PO DAILY #1 BOTTLE Ref 1 Prov: 10/18/15 OXYCODONE HCL/ACETAMINOPHEN (Oxycodone-Acetaminophen 10-325) 1 TAB PO Q4HP PRN PAIN #150 TAB Prov: 05/06/16 Reported Medications Timolol (Betimol 5 Ml) 1 DROP OP BID RASAGILINE MESYLATE (Azilect) 1 MG PO DAILY #30 Aspirin (Adult Low Dose Aspirin EC) 81 MG PO DAILY Rosuvastatin Calcium (Crestor) 5 MG PO QHS RANITIDINE HCL (Ranitidine HCl) 150 MG PO BID #60 TAB Primidone 50 MG PO QHS DEXTROMETHORPHAN HBR/QUINIDINE (Nuedexta 20-10 MG Capsule) 1 CAP PO BID GABAPENTIN (Gabapentin 100MG Capsule) 100 MG PO TID Nitroglycerin (Nitrolingual [place]) 0.4 MG SL PRN Metoprolol Tartrate (Metoprolol 100MG) 100 MG PO BID CARBIDOPA 25/LEVODOPA 100 (Carbidopa-Levodopa 25-100 Tab) 2 TABLET PO TID Isosorbide Mononitrate (Isosorbide Mononitrate ER) 30 MG PO DAILY #90 CLOPIDOGREL BISULFATE (Clopidogrel) 75 MG PO DAILY #90 TAMSULOSIN HCL (Tamsulosin HCl) 0.4 MG PO BID #180 Furosemide (Lasix 20MG) 20 MG PO DAILY Cranberry Extract (Cranberry) 250 MG PO BID METFORMIN HCL (Metformin 1000MG) 1,000 MG PO ACHS DEXTROMETHORPHAN HBR/QUINIDINE (Nuedexta 20-10 MG Capsule) 1 CAP PO BID ROPINIROLE HCL (Requip 0.25MG) 0.25 MG PO QHS Lactulose (Lactulose) 10 GM PO DAILYP PRN BM Acetaminophen (Pain Reliever) 500 MG PO Q6HP PRN FEVER Social Hx: Smoking HX Tobacco No Packs/day < 1 PACK Are you/the child exposed to second-hand smoke: Yes Alcohol Alcohol: No Hx of Drug Use Drug Use? No Patien't marital status is Patient's support system is excellent Comment: Long-term resident of residential. Review of systems: Constitutional diaphoresis, fever, malaise. No: chills. Respiratory cough, shortness of breath, SOB with excertion. Cardiovascular No no symptoms reported Gastrointestinal/Abdominal No no symptoms reported Genitourinary No: no symptoms reported. Musculoskeletal back pain, gout, joint pain. Neurological No: see HPI. Exam: Lab data for last 24 hours: Laboratory Tests 01/03/175: Troponin I < 0.02 01/03/1738: Lactic Acid 1.2 01/03/1738: Sodium 139, Potassium 3.9, Chloride 101, Carbon Dioxide 30, BUN 26 H, Creatinine 1.1, Estimated Creat Clear 70, Estimated GFR (MDRD) 67, Glucose 176 H, Calcium 8.2 L, Total Bilirubin 0.3, AST 18, ALT 8 L, Alkaline Phosphatase 89, Total Protein 7.4, Albumin 3.3 L, Globulin 4.1 H, Albumin/Globulin Ratio 0.8 L, WBC 14.4 H, RBC 4.47 L, Hgb 12.6 L, Hct 39.4 L, MCV 88.2, RDW 14.1, Plt Count 221, MPV 7.4, Gran % 88.4 H, Gran # 12.8 H, Total Counted 100, Lymphocytes % 8.0 L, Monocytes % 3.4, Eosinophils % 0.1, Basophils % 0.1, Neutrophils 69, Band Neutrophils 16 H, Lymphocytes (Manual) 13, Lymphocytes # 1.2, Monocytes (Manual) 2, Monocytes # 0.5, Eosinophils # 0.0, Basophils # 0.0, Platelet Estimate NORMAL, Ovalocytes 1+, PUBS MCHC 32.1, MCH 28.3 01/03/1734: Urine Color DK YELLOW, Urine Appearance TURBID, Urine pH 8.5, Ur Specific [place] 1.015, Urine Protein 2+ H, Urine Ketones TRACE H, Urine Blood 2+ H, Urine Nitrate NEGATIVE, Urine Bilirubin 1+ H, Urine Urobilinogen 1.0, Ur Leukocyte Esterase 3+ H, Urine RBC 10-20, Urine WBC 20-50, Ur Squamous Epith Cells 10-20, Urine Bacteria 4+, Urine Glucose NEGATIVE Microbiology 01/03 39 BLOOD: Anaerobic Blood Culture - RECD 01/03 39 BLOOD: Aerobic Blood Culture - RECD 01/03 39 BLOOD: Anaerobic Blood Culture - RECD 01/03 39 BLOOD: Aerobic Blood Culture - RECD 01/03 35 URINE CC: Urine Culture - RECD Admission vital signs: 1ST Vital Signs Result Date Time Pulse Ox 87 01/03 11 B/P 114/70 01/03 11 Temp 101.2 01/03 11 Pulse 111 09/04 0011 Resp 22 09/04 0011 O2 Delivery OXYGEN 01/03 0240 O2 Flow Rate 4 01/03 0248 Additional information: White male, appears older than his stated age. Constantly states "I want to go home." Lungs have rhonchi in both lung briggs. Especially in posterior bases. RIGHT anterior chest also with rhonchi. Heart rate regular. Abdomen soft. Movement of his back and legs causes pain at his baseline. No edema. Very poor tissue perfusion, lots of stigmata of nicotine damage to oral cavity, peripheral tissues, skin and fingernails. Plan: Problem List 1. Aspiration pneumonia 2. HCAP (healthcare-associated pneumonia) 3. Cough Plan: Restart patient's medications for pseudobulbar affect, parkinsonism, etc. Broad-spectrum anabiotics. Await culture results. at 0835
--- NOTE | 2017-01-03 10:31 | PHARMACY CLINIC NOTE ---
Patient Demographics Patient Demographics Admission date: 01/03/17 Date: 01/03/17 Time: 1030 Allergies Coded Allergies: No Known Allergies (04/15/16) HEIGHT- FT: 5 IN: 8.00 K.650 VTE General Information Labs: Laboratory Tests 01/03 003 Hematology Hgb (14.1 - 18.0 g/dL) 12.6 L Hct (42.0 - 52.0 %) 39.4 L Plt Count (142 - 424 K/mm3) 221 Disclaimer The following section includes nursing documentation that has been pulled in for pharmacy review. Patient's VTE score: 4 Patient's VTE Risk: LOW RISK Clinical trial participant? No VTE prophylaxis F [id number] VTE prophylaxis ordered? Yes Type of prophylaxis/treatment: JOSH at 1030
--- NOTE | 2017-01-03 12:31 | ST BEDSIDE DYSPHAGIA EVAL ---
SUBJECTIVE-DYSPHAGIA Date: 01/03/17 Time: 1150 Eval Type: Initial Certification - Admitted Date: 01/03/17 Primary Diagnosis: HEALTHCARE AQUIRED PNEUMONIA Reason for Consult: DYSPHAGIA Pt/Caregiver Concerns: COUGHING WITH LIQUIDS Onset of symptoms- MEDICAL HX UNKNOWN Symptoms have worsened? NO improved? NO resolved? NO since onset. Current Diet: REGULAR/THINS Allergies Coded Allergies: No Known Allergies (04/15/16) Home Medications Active Scripts Polyethylene Glycol 3350 (Miralax) 17 GM PO DAILY #1 BOTTLE Ref 1 Prov: 10/18/15 OXYCODONE HCL/ACETAMINOPHEN (Oxycodone-Acetaminophen 10-325) 1 TAB PO Q4HP PRN PAIN #150 TAB Prov: 05/06/16 Reported Medications Timolol (Betimol 5 Ml) 1 DROP OP BID RASAGILINE MESYLATE (Azilect) 1 MG PO DAILY #30 Aspirin (Adult Low Dose Aspirin EC) 81 MG PO DAILY Rosuvastatin Calcium (Crestor) 5 MG PO QHS RANITIDINE HCL (Ranitidine HCl) 150 MG PO BID #60 TAB Primidone 50 MG PO QHS GABAPENTIN (Gabapentin 100MG Capsule) 100 MG PO TID Nitroglycerin (Nitrolingual [place]) 0.4 MG SL PRN Metoprolol Tartrate (Metoprolol 100MG) 100 MG PO BID CARBIDOPA 25/LEVODOPA 100 (Carbidopa-Levodopa 25-100 Tab) 2 TABLET PO TID Isosorbide Mononitrate (Isosorbide Mononitrate ER) 30 MG PO DAILY #90 CLOPIDOGREL BISULFATE (Clopidogrel) 75 MG PO DAILY #90 TAMSULOSIN HCL (Tamsulosin HCl) 0.4 MG PO BID #180 Furosemide (Lasix 20MG) 20 MG PO DAILY Cranberry Extract (Cranberry) 250 MG PO BID METFORMIN HCL (Metformin 1000MG) 1,000 MG PO ACHS DEXTROMETHORPHAN HBR/QUINIDINE (Nuedexta 20-10 MG Capsule) 1 CAP PO BID ROPINIROLE HCL (Requip 0.25MG) 0.25 MG PO QHS Lactulose (Lactulose) 10 GM PO DAILYP PRN BM Acetaminophen (Pain Reliever) 500 MG PO Q6HP PRN FEVER Is this assessment r/t stroke? No OBJECTIVE COMMUNICATION/COGNITION Barriers to communication/cog? Yes Orientation POS: Name, Place, Day, Date, Year. Follows Commands POS: Follows 1-step commands, Follows 2-step commands. Able to remember swallow strategies? Yes Intelligibility Fair Barriers to communication: DECREASED INTELLIGIBILITY. DECREASED VOLUME ORAL-MOTOR STRUCTURE/FUNCTION Structure/Function WFL: Labial, Buccal, Lingual, Velar, Mandibular. Facial Asymmetry None Laryngeal Function Strong: Voluntary Cough, Throat Clearing. Vocal Quality DECREASED VOLUME Dentition Good dentition RESPIRATORY STATUS/HISTORY Is resp status/hx a concern? Yes Requires Oxygen: Cannula Breathes from mouth? Yes Risk-fatigue due to comp.resp? Yes DYSPHAGIA SIGNS W/CONSISTENCY Any S/S of Dysphagia? Yes Coughing- Thin Other- Solid (POOR BOLUS FORMATION) ASSESSMENT/PLAN ASSESSMENT Impression Mr. Woods, a 66 year old male, was referred for a bedside evaluation of swallowing by his physician, Dr. Handy. Mr. Woods has a diagnosis of Parkinson 's Disease resulting in difficulty swallowing. Mr. Woods was referred for outpatient therapy in September 2016 but discontinued himself prior to completion of program. Mr. Woods was given HEP after evaluation but it is unknown if program was completed. Mr. Woods was given the following consistencies: thins via straw and open cup, nectar via spoon, pudding, mechanical soft, and regular. The following signs of dysphagia were noted: decreased bolus formation with regular (not chewing completely before swallowing). It is recommended that Mr. Woods be placed on mechanical soft diet with nectar thick liquids via spoon only. ST is recommended. PLAN SHORT TERM GOALS Bolus Formation/tongue movement- Patient will increase tongue movement to improve the ability to put food/liquid into a cohesive bolus to reduce the risk of food residue falling into the airway. Treatment Objectives: Patient will use multiple swallows for food consistencies with/without cues on 3 of 3 trials, (c) Patient will alternate thin liquid wash every 2 bite(s) with/without cues on 3 of 3 trials. (c) Patient will move tongue in clockwise motion between teeth and closed lips on 5 of 5 trials, (f) Patient will protrude tongue to try to touch the chin and nose with tongue tip on 5 of 5 trials, (f) Patient will push up with back of tongue against tongue depressor on 5 of 5 trials. (Helpful cue: Ask patient to try to say /k/.) (f) Patient will click tongue against roof of mouth on 5 of 5 trials, (f) Patient will push tongue tip out against tongue depressor on 5 of 5 trials, (f) Patient will push blade of tongue upward against tongue depressor on 5 of 5 trials, (f) Patient will push R/L lateral border of tongue against tongue depressor on 5 of 5 trials, (f)Aspiration After/laryngeal vestibule/laryngeal elevation- Patient will improve laryngeal elevation to reduce penetration into the upper laryngeal vestibule to reduce the risk of the penetrated material being aspirated after the swallow. Treatment Objectives: Patient will produce /i/ in continuous fashion, including falsetto on 10 of 10 trials, (f) Anticipate reaching in # wks 1 PRIVATE DETECTIVE GOALS Patient will safely consume mechanical soft diet with nectar liquids without complications such as aspiration pneumonia. Anticipate reaching in # wks 1 RECOMMENDATIONS Diet: mechanical soft-ground with nectar liquids Speech Therapy indicated Yes SWALLOW GUIDELINES Standard Aspiration Prec., Liquids Given (Spoon Only), Assist w/All Meals, sit upright during meals and 30 minutes after PLAN See Daily/Progress Note for Initial HEP and Patient Care Instructions Patient will be seen 1-2 x per day during the hospital length of stay. Patient/Guardian verbally acknowledges understanding of treatment program and consents to further treatment: yes Patient/Guardian verbally acknowledges understanding of diagnosis, prognosis, and goals for treatment: yes PHYSICIAN CERTIFICATION: I certify that the above Speech Therapy services are required, authorized, and reviewed every 30 days. Rehab Medicare G Code Plan Medicare/G Code eligible? Yes Therapy Discipline Plan: RISK COMPLIANCE ANALYST PLAN OF CARE G Code Current Status: SWALLOWING (G8996) Current Status Modifier: 20%-39% IMPAIRED (CJ) G Code Goal Status: SWALLOWING (G8997) Goal Status Modifier: 20%-39% IMPAIRED (CJ) G Code Discharge Status: SWALLOWING (G8998) Discharge Status Modifier: 20%-39% IMPAIRED (CJ) If pt's [facility] benefits exhausted If patient's Medicare benefits are exhausted, please review: #Min Spent: 30 at 1230
[2017-01-04] VITALS (8 sets, daily range): BP systolic 107–155; BP diastolic 64–82
[2017-01-04 06:48] LABS: LYMPH # 1.6 K/mm3 (0.7-4.5); LYMPH % 16.3 % (10-50)
[2017-01-04 07:17] LABS: HEMOGLOBIN 11.1 g/dL (14.1-18.0)
--- NOTE | 2017-01-04 08:35 | ACUTE CARE PROGRESS NOTE (QUA) ---
Progress Notes Subjective Date 01/04/17 Time 0833 Note Overall patient feels a little better, verbal. Fever curve has improved. Lungs are clearer, better air entry. Abdomen soft, Manley catheter draining clear urine. Objective Findings Last VS-Temp:98.1 B/P:150/82 Pulse:68 Resp:18 SaO2:95 OXYGEN Last weight lbs:171 oz:3 K.650 Method:Bed Scales Assessment/Plan Problem List 1. Aspiration pneumonia 2. HCAP (healthcare-associated pneumonia) 3. Cough Patient condition Improving Plan: continue current care, continue current care, patient improving from aspiration perspective - await culture results. This inpt stay is expected to cross 2 MNs from start of care Yes at 0834
[2017-01-05 04:01] VITALS: BP 137/86
--- NOTE | 2017-01-05 07:42 | ACUTE CARE PROGRESS NOTE (QUA) ---
Progress Notes Subjective Date 01/05/17 Time 0740 Note Patient is afebrile, now for 48 hours. No complaints of breathing issues. He states it "better." Lungs the lungs with scattered loose rhonchi but no crackles or wheezes. Good air movement. Abdomen soft, no edema. Patient wearing JOSH hose Objective Findings Last VS-Temp:97.8 B/P:137/86 Pulse:53 Resp:20 SaO2:97 OXYGEN Last weight lbs:171 oz:3 K.650 Method:Bed Scales Assessment/Plan Problem List 1. Aspiration pneumonia 2. HCAP (healthcare-associated pneumonia) 3. Cough Patient condition Improving Plan: continue current care, initiate discharge plan This inpt stay is expected to cross 2 MNs from start of care Yes at 0741
[2017-01-05] MEDS ORDERED: AUGMENTIN1 TA1 PO (07:44)
[2017-01-05] MEDS ORDERED: LEVAQUIN500 MG PO (07:44)
[2017-01-05] MEDS ORDERED: DIFLUCAN 200MG200 MG PO (07:45)
--- NOTE | 2017-01-05 07:48 | DISCHARGE SUMMARY STANDARD ---
Demographics Admit date: 01/03/17 Discharge date: 01/05/17 History of present illness History of present illness 66-year-old white male, resident of the [facility] facility, who has been confined to the long-term there because of severe chronic obstructive pulmonary disease, crippling back degenerative disease, status post multiple fusion procedures and chronic pain issues as well as dementia with pseudo-bulbar affect issues and parkinsonism who I saw December 30 on regular rounds who had fairly baseline lung exam. The long-term called EMS late last night because patient had a high fever, and he was brought to the emergency department where he was found to have infiltrates on chest x-ray and evidence of aspiration pneumonia/long-term acquired disease. Admitted to hospital with broad-spectrum antibiotics. This morning his breathing has improved somewhat but he continues to have some pain. Hospital Course Hospital Course: Patient was admitted, placed on broad-spectrum coverage for aspiration/ pseudomonas coverage. Sputum culture was nondiagnostic although did show a copious amount of yeast with budding-A. in his sputum. Patient continued to do fairly well but refused his thickened liquid diet and continued to demand and liquids in spite of his acknowledged risk of aspiration. Other medications were continued and patient defervesced nicely. Blood cultures were negative. This morning he is doing well, back to his baseline. We transferred back to the [facility] facility with Augmentin and levofloxacin for 5 days and Diflucan for 10 days to treat possible fungal pneumonia. We will follow him up at regular long-term rounds. Overall prognosis is poor. Discharge diagnoses Problem List 1. Aspiration pneumonia 2. HCAP (healthcare-associated pneumonia) 3. Cough Medications Medications: Discharge meds are as noted. Follow up Follow up in office in: 4 DAYS with: GERI CABELLO APRN at [phone]
[2017-01-05 08:00] VITALS: BP 150/81
[2017-01-05 10:55] VITALS: BP 150/81
[2017-01-05 10:58] VITALS: BP 150/81
== END 2017-01-05 11:50 | DRG 179 ==
LOC: ER 00:09 → 2ND 01:40
PROVIDERS: Emergency Medicine
DX: J69.0 Pneumonitis due to inhalation of food and vomit (principal); G20 Parkinson's disease; F02.80 Dementia in other diseases classified elsewhere, unspecified severity, without behavioral disturbance, psychotic disturbance, mood disturbance, and anxiety; Y95 Nosocomial condition; J44.9 Chronic obstructive pulmonary disease, unspecified; I10 Essential (primary) hypertension; E11.9 Type 2 diabetes mellitus without complications; F48.2 Pseudobulbar affect
CPT/HCPCS: J2543

== ENCOUNTER 2017-01-08 16:32 | Emergency (ER) | payer MEDICARE, MEDICAID ==
[~2017-01-08] VITALS: Ht 172.7 cm; Wt 99.8 kg
[~2017-01-08 16:32] MED LIST changes: +AUGMENTIN1 TA1 PO; +CRANBERRY250 MG PO; +DIFLUCAN 200MG200 MG PO; +LACTULOSE10 GM/15 M PO; +LASIX 20MG. TAB20 MG PO; +METFORMIN HCL1000 MG PO; +NON-ASPIRIN EX500 MG PO; +REQUIP0.25 MG PO
--- NOTE | 2017-01-08 16:44 | Emergency Room Report ---
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 N Clinical Suspician of Infection? N Mental Status: 1 - Regular (Normal Baseline) Sepsis Risk:Low Sepsis Risk Have you (or family members/close friends) recently traveled outside the [place]? N If Yes, where/when: Have you had exposure to infectious disease within the past month? N TB? Other? Specify: Comment The patient is brought in by ambulance from [facility] with a written report that the patient has aspiration pneumonia and family requests evaluation. The patient denies shortness of breath to me. He denies chest pain. He has pain in his tailbone, apparently this is chronic per review of prior records. The patient was recently admitted here 01/03/17 through 01/05/17 for pneumonia, HCAP Versus aspiration pneumonia. He was discharged on Levaquin and Augmentin. ALLERGIES Coded Allergies: atorvastatin (From LIPITOR) (01/08/17) Home Medications Active Scripts Polyethylene Glycol 3350 (Miralax) 17 GM PO DAILY #1 BOTTLE Ref 1 Prov: 10/18/15 OXYCODONE HCL/ACETAMINOPHEN (Oxycodone-Acetaminophen 10-325) 1 TAB PO Q4HP PRN PAIN #150 TAB Prov: 05/06/16 Levofloxacin (Levaquin 500MG) 500 MG PO DAILY #5 TAB Prov: 01/05/17 AMOXICILLIN/POTASSIUM CLAV (Augmentin 500-125 Tablet) 1 TAB PO BID #10 TAB Prov: 01/05/17 Fluconazole (Diflucan 200MG) 200 MG PO DAILY #10 TAB Prov: 01/05/17 Reported Medications Primidone 50 MG PO TID GABAPENTIN (Gabapentin 100MG Capsule) 200 MG PO TID METFORMIN HCL (Metformin 1000MG) 1,000 MG PO BID ROPINIROLE HCL (Requip 0.25MG) 0.25 MG PO TID Lactulose (Lactulose) 20 GM PO DAILYP PRN CONSTIPATION Timolol (Betimol 5 Ml) 1 DROP OP BID Aspirin (Adult Low Dose Aspirin EC) 81 MG PO DAILY Rosuvastatin Calcium (Crestor) 5 MG PO QHS RANITIDINE HCL (Ranitidine HCl) 150 MG PO BID #60 TAB Nitroglycerin (Nitrolingual [place]) 0.4 MG SL PRN Metoprolol Tartrate (Metoprolol 100MG) 100 MG PO BID CARBIDOPA 25/LEVODOPA 100 (Carbidopa-Levodopa 25-100 Tab) 2 TABLET PO TID Isosorbide Mononitrate (Isosorbide Mononitrate ER) 30 MG PO DAILY #90 CLOPIDOGREL BISULFATE (Clopidogrel) 75 MG PO DAILY #90 TAMSULOSIN HCL (Tamsulosin HCl) 0.4 MG PO BID #180 Furosemide (Lasix 20MG) 20 MG PO DAILY Cranberry Extract (Cranberry) 250 MG PO BID DEXTROMETHORPHAN HBR/QUINIDINE (Nuedexta 20-10 MG Capsule) 1 CAP PO BID Acetaminophen (Pain Reliever) 500 MG PO Q6HP PRN FEVER History Medical History General CAD? No Angina: Yes AL: Yes Hypertension? Yes Hyperlipidemia? Yes CHF? No DVT? No PE? No COPD? Yes Asthma? Yes Anemia? No GERD? No Gastric ulcers? No GI Bleed? No Hernia? No Thyroid Problems? No Hypothyroidism? No CVA? No Seizures? No Diabetes? Yes Insulin Dependent: No Insulin Pump: No Home FSBS? Yes Renal Insuffiency? Yes End Stage Renal Disease? No UTI? No Stones? No BPH? Yes GB Disease: No Nephritic Syndrome? No Asplenia? No Hepatitis? No Sickle Cell Disease? No Arthritis? Yes Migraines? No Cataracts? No Glaucoma? Yes MRSA? No HIV? No TB? No Anxiety? No Depression? No Cancer? No More? No Immunization Hx DT/Tetanus 1-4 Years Ago Flu 2016-17FSN Pneumonia Received In Past Surgical Hx Previous Surgery?Y RT SHOULDER TEETH BACK SURGERY Family History Family Hx Diabetes Yes CAD Yes Hypertension Yes Hyperlipidemia Yes Cancer Yes TB No Social History Smoking Hx Smoker: Former Smoker Tobacco: No Packs/day < 1 Pack Alcohol Alcohol: No Review of Systems All Other Systems Reviewed and Negative Respiratory denies shortness of breath Cardiovascular denies chest pain Gastrointestinal denies abdominal pain Physical Exam Vital Signs Vital Signs Date Time Temp Pulse Resp B/P Pulse O2 O2 Flow FiO2 Ox Delivery Rate 01/08 1918 97.7 83 20 116/63 97 2 01/08 191 20 97 2 01/08 1907 97.7 97 2 01/08 1826 83 20 163/87 93 2 01/08 1734 97.9 83 20 137/83 93 01/08 1635 97.9 83 20 137/83 93 General Appearance appears debilitated and chronically ill. On nasal cannula oxygen. Manley catheter., gurgling upper airway sounds with breathing Eye Exam - bilateral eye normal exam, bilateral eye PERRL, bilateral eye EOMI Ear, Nose, Throat hearing grossly normal, normal ENT inspection Neck normal inspection, non-tender, supple, full range of motion Respiratory Status Yes: trachea midline, chest symmetrical. No: respiratory distress. Lung Sounds bilateral: normal breath sounds, lungs clear. Cardiovascular normal exam, regular rate/rhythm, no peripheral edema, no gallop, no JVD, no murmur, no rub, normal peripheral pulses Gastrointestinal normal bowel sounds, normal exam, non tender, soft, no organomegaly Extremities normal inspection Neurologic alert, oriented x 3, moves all 4 extremities Mental status normal mood/affect Skin intact, normal color, warm/dry Lymphatic no adenopathy Medical Decision Making LABS/Meds/Orders Pt receiving controlled substance in ED? No Results/Orders Laboratory Tests 01/08/17 1654: Lactic Acid 0.8 01/08/17 1640: Creatine Kinase 639 H, CK-MB (CK-2) Rel Index 0.1, CK and CKMB Interp 0.7, Troponin I < 0.02 01/08/17 1640: Sodium 144, Potassium 3.7, Chloride 106, Carbon Dioxide 27, BUN 22 H, Creatinine 0.9, Estimated Creat Clear 111, Estimated GFR (MDRD) 84, Glucose 100, Calcium 8.8, Total Bilirubin 0.2, AST 19, ALT 5 L, Alkaline Phosphatase 87, Total Protein 7.6, Albumin 3.1 L, Globulin 4.5 H, Albumin/Globulin Ratio 0.7 L, WBC 9.5, RBC 4.41 L, Hgb 12.5 L, Hct 39.0 L, MCV 88.5, RDW 13.9, Plt Count 234, MPV 7.4, Gran % 75.1, Gran # 7.1, Lymphocytes % 18.5, Monocytes % 5.7, Eosinophils % 0.3, Basophils % 0.3, Lymphocytes # 1.8, Monocytes # 0.5, Eosinophils # 0.0, Basophils # 0.0, PUBS MCHC 32.1, MCH 28.4 Current Medication Orders Sig/[place] Start time Last Medication Dose Route Stop Time Status Admin Sodium Chloride 1,000 ML .Q1H1M 01/08 1845 AC 01/08 IV 01/08 194 184 Sodium Chloride 1,000 ML .STK-MED ONE 01/08 1838 DC IV Sodium Chloride 10 ML PRN PRN 01/08 170 AC IV 01/09 1649 Orders Procedure Date/time Status OP COURTSEY MEAL 01/08 184 Active ELECTROCARDIOGRAM REQUEST 01/08 170 Active CARDIAC ENZYMES 01/08 1702 Complete CHEST-PORTABLE 01/08 170 Active IV SALINE LOCK 01/08 1650 Active CULTURE, BLOOD 01/08 1650 Active LACTIC ACID 01/08 1650 Complete CBC WITH AUTO DIFF 01/08 1650 Complete CHEM 12 PROFILE 01/08 1650 Complete 12 LEAD EKG-EVELIO (INITIAL) 01/08 UNK Active CM/EKG CM/EKG Comments EKG interpreted by Wade Barcenas MD: Rhythm: sinus Rate: 82 [place]: normal Ectopy: none Conduction: Incomplete RIGHT bundle-branch block ST Segment Changes: none T Wave Changes: none Q Waves: none No evidence of acute ischemia or injury Baseline artifact present, but I consider the EKG adequate for accurate interpretation. XRAY/CT/US XRAY/CT/US XRAY chest Comment X-ray interpreted by Wade Barcenas M.D.: Markedly improved bibasilar infiltrates Progress - 6:15 PM: Family is present. They state that shelter was concerned about possible dehydration. The patient's diet was changed from regular to thickened liquids because of possible aspiration. Since discharge from the hospital, he has refused to take the thickened liquids I reviewed some of the patient's medical record. He also refused thickened liquids while in the hospital. He had a modified barium swallow in September that was normal. Dr. Lancaster therefore feels he can be fed a regular diet. Otherwise, he will get no nutrition or fluids. He says he will discuss this with Dr. Handy in the morning. Family and patient are agreeable. IV fluids and meal, oral liquids prior to discharge. Departure Departure Disposition DC Home or Self Care(routine) Clinical Impression Primary Impression: Dehydration Secondary Impressions: Dietary noncompliance Condition STABLE Additional Instructions Stop fully quit diet. May have 2000-calorie ADA diet. Needs assistance with eating. ED Critical Care Critical Care No at 1930
[2017-01-08 17:09] LABS: LYMPH # 1.8 K/mm3 (0.7-4.5); LYMPH % 18.5 % (10-50)
[2017-01-08 17:10] LABS: HEMOGLOBIN 12.5 g/dL (14.1-18.0)
[2017-01-08 19:18] VITALS: BP 116/63
--- NOTE | 2017-01-09 07:50 | RADIOLOGY REPORT PS360 ---
CHEST-PORTABLE HISTORY: cough ORDERING PHYSICIAN: Wade Barcenas MD PATIENT AGE: 66 years COMPARISON: 01/03/2017 FINDINGS: The cardiomediastinal silhouette and pulmonary vascularity are within normal limits. Consolidation is present in the right lung base medially which is shown some improvement compared to the previous exam. Left lower lobe pneumonia has also improved. Upper lobes are clear. IMPRESSION: Persistent but improving pneumonia in the right lung base medially.
== END 2017-01-08 19:38 | disposition home or self-care (01) ==
LOC: ER 16:32
PROVIDERS: Emergency Medicine
DX: E86.0 Dehydration (principal); Z91.11 Patient's noncompliance with dietary regimen; J18.9 Pneumonia, unspecified organism; Z79.02 Long term (current) use of antithrombotics/antiplatelets; Z79.82 Long term (current) use of aspirin; Z79.899 Other long term (current) drug therapy; Z79.84 Long term (current) use of oral hypoglycemic drugs; I25.10 Atherosclerotic heart disease of native coronary artery without angina pectoris; I25.2 Old myocardial infarction; I10 Essential (primary) hypertension; E78.5 Hyperlipidemia, unspecified; J44.9 Chronic obstructive pulmonary disease, unspecified; Z87.891 Personal history of nicotine dependence